=== PATIENT | female | born 1985 | race Caucasian/White ===

== ENCOUNTER 2022-11-21 08:58 | Outpatient (CLI) | payer OTHER | END 2022-11-21 09:27 | disposition home or self-care (01) | LOC: RX STUDY 08:58 | DX: N97.1 Female infertility of tubal origin (principal) ==

== ENCOUNTER 2023-10-08 07:10 | Day surgery (SDC) | payer OTHER ==
[2023-10-02 10:26] LABS: HEMATOCRIT 38.4 % (36.0-45.00); HEMOGLOBIN 12.6 g/dL (12.0-15.00); MEAN CELL VOLUME 87.9 fL (80.00-100.00); MEAN CORPUSCULAR HEMOGLOBIN 28.9 pg (27.00-32.0); MEAN CORPUSCULAR HGB CONC 32.9 g/dl (32.0-36.0); PLATELET COUNT 300 K/uL (150-450); RED BLOOD COUNT 4.37 M/uL (4.00-6.00)
[2023-10-02 10:33] LABS: PH,URINE 6.5 (5.0-8.0); URINE APPEARANCE Clear; URINE BILIRRUBIN Negative (NEGATIVE); URINE BLOOD Trace; URINE COLOR Yellow; URINE GLUCOSE Negative (NEGATIVE); URINE LEUKOCYTE Trace; URINE NITRATE Negative; URINE PROTEIN Negative (NEGATIVE); URINE UROBILINOGEN 0.2 E.U./dl
[2023-10-02 10:36] LABS: URINE BACTERIA 254.4 uL (0.0-1933); URINE EPITHELIAL CELLS 21.9 uL (0.0-38.8); URINE RBC 12.3 uL (0.0-20.8)
[2023-10-02 11:03] LABS: INR 0.97; PARTIAL THROMBOPLASTIN TIME 28.7 SECONDS (22.0-34.0); PROTHROMBIN TIME 10.2 SECONDS (9.0-11.5)
[2023-10-02 11:28] LABS: ALBUMIN 3.6 gm/dL (3.4-5.0); BILIRUBIN TOTAL 0.25 mg/dL (0.3-1.2); CALCIUM 8.9 mg/dL (8.5-10.1); CREATININE SERUM 0.57 mg/dL (0.55-1.02); GFR 118.7; GLOBULINA 3.7 G/DL (2.4-3.5); POTASSIUM 3.97 mEq/L (3.5-5.1); TOTAL PROTEIN 7.3 gm/dL (6.4-8.2)
[2023-10-08] MEDS ORDERED: ONDANSETRON HCL 2 MG/ML VIAL IV PRN (14:00)
[2023-10-08] MEDS ORDERED: RINGERS SOLUTION,LACTATED 1,000 ML IV SCH (14:00)
[2023-10-08] MEDS ORDERED: KETOROLAC TROMETHAMINE 30 MG VIAL IV ONE (14:00)
[2023-10-08] MEDS ORDERED: KETOROLAC TROMETHAMINE 30 MG VIAL ONE (17:08)
== END 2023-10-08 17:40 | disposition home or self-care (01) ==
LOC: CIR.AMB 07:10
PROVIDERS: ATTEND General Practice
DX: N84.0 Polyp of corpus uteri (principal); N93.9 Abnormal uterine and vaginal bleeding, unspecified